=== PATIENT | female | born 1975 | race African-American/Black ===

== ENCOUNTER 2016-03-15 10:41 | Emergency (ER) | payer OTHER ==
[~2016-03-15] VITALS: Ht 157.5 cm; Wt 64.4 kg
[~2016-03-15 10:41] MED LIST: FLEXERIL5 MG PO; MOBIC15 MG PO; NAPROXEN500 MG PO; PERCOCET 5/31 TABLET PO; PRILOSEC40 MG PO; TRAMADOL HCL50 MG PO; VENTOLIN HFA18 GM IH
[2016-03-15 10:57] VITALS: BP 129/74
[2016-03-15 11:59] LABS: EOSINOPHIL (%) 3.5 % (0-5); EOSINOPHIL COUNT 0.3 K/uL (0-0.3); HEMATOCRIT 43.7 % (36.0-46.0); IMMATURE GRANULOCYTE (%) 0.1 % (0.0-0.7); IMMATURE GRANULOCYTE COUNT 0.1 K/uL; MCH 32.3 PG (29.0-34.0); MCHC 33.4 G/DL (30.0-36.0); MCV 96.7 FL (83-99); MEAN PLAT.VOLUME 8.5 uM^3 (9.5-12.4); MONOCYTE (%) 6.6 % (3-12); MONOCYTE COUNT 0.6 K/uL (0-0.8); NEUTROPHIL (%) 68.5 % (45-76); NEUTROPHIL COUNT 6.3 K/uL (1.8-6.4); PLATELET COUNT 362 K/uL (156-360); RBC DIS.WIDTH-CV 12.1 % (11.8-14.6); RBC DIS.WIDTH-SD 41.8 % (39-53); RED BLOOD COUNT 4.52 M/uL (3.80-5.20); WHITE BLOOD COUNT 9.2 K/uL (4.1-10.2)
[2016-03-15 12:08] LABS: CHLORIDE 105 mEq/L (99-109); POTASSIUM 3.9 mEq/L (3.7-5.4); SODIUM 140 mEq/L (136-147)
[2016-03-15 12:09] LABS: GLUCOSE 95 mg/dL (70-99)
[2016-03-15 12:11] LABS: ANION GAP 11 MEQ/L (2-14)
[2016-03-15 12:13] LABS: GFR ESTIMATE (CALCULATED) > 59 mL/min/
[2016-03-15 12:14] LABS: UREA NITROGEN (BUN) 17 mg/dL (9-23)
[2016-03-15] MEDS ORDERED: KEFLEX500 MG PO (14:48)
== END 2016-03-15 15:22 | disposition home or self-care (01) ==
LOC: EME 10:41
DX: L03.113 Cellulitis of right upper limb (principal)
CPT/HCPCS: 80048; 83605; 85025; 99281; 99283